=== PATIENT | female | born 1950 | race Caucasian/White ===

== ENCOUNTER 2017-04-21 13:52 | Outpatient (CLI) | payer MEDICARE | END 2017-04-21 13:53 | disposition home or self-care (01) | LOC: BICMAMMO 13:52 | PROVIDERS: ATTEND Internal Medicine Rheumatology | DX: Z13.820 Encounter for screening for osteoporosis (principal); M85.80 Other specified disorders of bone density and structure, unspecified site; Z78.0 Asymptomatic menopausal state | CPT/HCPCS: 77080 ==

== ENCOUNTER 2017-12-22 14:07 | Outpatient (CLI) | payer MEDICARE ==
--- NOTE | 2017-12-22 15:03 | RAD ---
PA AND LATERAL VIEWS CHEST: Date: 12/22/17 HISTORY: Cough. FINDINGS: Comparison made with exam of 12/19/12. The heart size is normal. 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 The lungs are well exp anded without focal areas of consolidation, pneumothoraces, or pleural effusions. There are degenerat cristóbal changes in the spine. IMPRESSION: No radiographic evidence of acute cardiopulmonary process. POS: [facility]
--- NOTE | 2017-12-22 15:18 | RAD ---
ABDOMEN 1 VIEW: HISTORY: Nausea. FINDINGS/IMPRESSION: The bowel gas pattern is unremarkable. No suspicious calcifications are seen. There are degenerativ e changes in the spine. POS: [facility]
== END 2017-12-22 14:08 | disposition home or self-care (01) ==
LOC: RAD-FRANK 14:07
PROVIDERS: ATTEND Nurse Practitioner Family
DX: R11.0 Nausea (principal); R05 Cough; M47.9 Spondylosis, unspecified
CPT/HCPCS: 71046; 74018

== ENCOUNTER 2018-02-08 10:54 | Outpatient (CLI) | payer MEDICARE ==
--- NOTE | 2018-02-08 12:42 | RAD ---
RIGHT SHOULDER TWO VIEWS: History: Pain. Comparison: None. FINDINGS: The exam was incomplete as the transcapular Y view was unable to be obtained due to hardware failure. Within the limits of this exam, no acute fracture or malalignment. 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 Visualized ribs are unremarkable. IMPRESSION: Within the limitations of this exam, no displaced fracture. POS: [facility]
== END 2018-02-08 10:55 | disposition home or self-care (01) ==
LOC: RAD-FRANK 10:54
PROVIDERS: ATTEND Nurse Practitioner Family
DX: M25.511 Pain in right shoulder (principal)

== ENCOUNTER 2019-09-13 14:34 | Outpatient (CLI) | payer MEDICARE ==
--- NOTE | 2019-09-13 14:49 | RAD ---
EXAM: 3 views of the right shoulder HISTORY: Shoulder pain COMPARISON: 02/08/2018 FINDINGS: There is no evidence of acute fracture or dislocation. No degenerative changes are present. No soft tissue swelling is seen. The visualized thorax is unremarkable. IMPRESSION: No evidence of acute osseous abnormality.
== END 2019-09-13 14:35 | disposition home or self-care (01) ==
LOC: RAD-FRANK 14:34
PROVIDERS: ATTEND Nurse Practitioner Family
DX: M25.511 Pain in right shoulder (principal)

== ENCOUNTER 2020-05-15 15:12 | Outpatient (CLI) | payer MEDICARE | END 2020-05-15 15:13 | disposition home or self-care (01) | LOC: BICMRI 15:12 | PROVIDERS: ATTEND Orthopaedic Surgery | DX: M75.101 Unspecified rotator cuff tear or rupture of right shoulder, not specified as traumatic (principal); M25.412 Effusion, left shoulder; M19.012 Primary osteoarthritis, left shoulder ==

== ENCOUNTER 2021-12-23 12:41 | Inpatient (IN) | payer MEDICARE ==
[~2021-12-23 12:41] MED LIST: Iopamidol-370 76% 500 ML 1 ML ONE
[2021-12-23 13:23] LABS: #Basophils 0.1 thou/uL (0.0-0.2); #Eosinphils 0.6 thou/uL (0.0-0.7); #Lymphocytes 1.9 thou/uL (1.20-3.40); #Monocytes 0.6 thou/uL (0.11-0.59); #Neutrophils 7.1 thou/uL (1.40-6.50); %Basophils 0.5 % (0.0-1.0); %Eosinophils 6.1 % (0.0-10.0); %Lymphocytes 18.8 % (21.0-51.0); %Monocytes 5.5 % (0.0-10.0); Hemoglobin 13.4 g/dL (12.0-16.0); Mean Corpuscular HGB CONC 31.1 g/dL (32.0-36.0); Mean Corpuscular Hemoglobin 29.7 pg (27.0-31.0); Mean Corpuscular Volume 95.4 fl (78.0-98.0); Mean Platelet Volume 8.6 fL (7.4-10.4); Platelet Count 195 thou/uL (130-400); RBC Distribution Width 11.8 % (11.5-14.5); White Blood Cell (WBC) Count 10.3 thou/uL (4.8-10.8)
[2021-12-23] MEDS ORDERED: Magnesium 2 GM/50 ML BAG (IN WATER) ONE (13:37)
[2021-12-23 13:47] LABS: ALT (SGPT) 14 U/L (8-55); AST (SGOT) 14 U/L (5-34); Albumin 3.9 g/dL (3.4-4.8); Alkaline Phosphatase 73 U/L (40-110); Anion Gap 16 mmol/L (10-20); BUN (Urea Nitrogen) 8 mg/dL (9.8-20.1); Bilirubin, Total 0.5 mg/dL (0.2-1.2); Calc. Creatinine Clearance 0 mL/min (70-130); Calcium 9.2 mg/dL (7.8-10.44); Carbon Dioxide 27 mmol/L (23-31); Chloride 101 mmol/L (98-107); Estimated GFR 81; Globulin 2.1 g/dL (2.4-3.5); Glucose 221 mg/dL (83-110); Lipase 17 U/L (8-78); Magnesium 2.9 mg/dL (1.6-2.6); Potassium 3.7 mmol/L (3.5-5.1); Sodium 140 mmol/L (136-145)
[2021-12-23] MEDS ORDERED: Ondansetron PF 4 MG/2 ML Vial IVP PRN (15:04)
[2021-12-23] MEDS ORDERED: Acetaminophen 325 MG TAB PO PRN (15:04)
[2021-12-23] MEDS ORDERED: Dextrose 50% Abboject 50 ML SYRINGE SLOW IVP PRN (15:07)
[2021-12-23] MEDS ORDERED: Dextrose 5% in Water 1,000 ML IV PRN (15:07)
[2021-12-23 15:14] LABS: Bilirubin Negative (Negative); Blood, Urine Negative (Negative); Clarity Clear (Clear); Glucose, Urine (Dipstick) 50 mg/dL (Negative); Ketone, Urine Trace mg/dL (Negative); Leukocyte Negative Leu/uL (Negative); Nitrite Negative (Negative); Protein, Urine (Dipstick) Negative (Neg-Trace); Urobilinogen Normal mg/dL (Less than 2)
[2021-12-23 16:17] LABS: Actual Bicarbonate (HCO3a) 28.9 mEq/L (22-28); Analyzer IN Cardio ER; Base Excess (BEa) 3.1 mEq/L (-2.0 to +3.0); CO2 Tension 48.8 mmHg (35.0-45.0); Calcium, Ionized (arterial) 1.13 mmol/L (1.12-1.30); Carboxyhemoglobin (COHb) 1.2 gm% (0.0-3.0); Hemoglobin (Hb) 14.2 g/dL (12.0-16.0); pH, Arterial 7.39 (7.35-7.45)
[2021-12-23 16:22] LABS: O2 Tension (PaO2), arterial 56.3 mmHg (> 70.0); Puncture Site LRA
[2021-12-23 16:52] LABS: Troponin I Less than 0.010 ng/mL (< 0.028)
[2021-12-23] MEDS ORDERED: cefTRIAXone\\ROCEPHIN 1 GM in Sodium Chloride 0.9% 100 ML IVPB SCH (17:00)
[2021-12-23] MEDS ORDERED: Azithromycin 500 MG in Sodium Chloride 0.9% 250 ML 250 ML IVPB SCH (18:00)
[2021-12-23] MEDS: methylPREDNISolone Sod Succ 40 MG VIAL IVP SCH (21:20)
[2021-12-23] MEDS: HumaLOG 300 UNITS/3 ML VIAL SC PRN ×2 (21:21→21:22)
[2021-12-23] MEDS: cefTRIAXone\\ROCEPHIN 1 GM in Sodium Chloride 0.9% 100 ML IVPB SCH (21:21)
[2021-12-23 21:23] LABS: Troponin I Less than 0.010 ng/mL (< 0.028)
[2021-12-23] MEDS ORDERED: traMADol HCl 50 MG TAB PO SCH (21:30)
[2021-12-23] MEDS: Azithromycin 500 MG in Sodium Chloride 0.9% 250 ML 250 ML IVPB SCH (22:24)
[2021-12-24 01:43] LABS: SARS-CoV-2 NAA Rapid Test Not Detected (NotDetected)
[2021-12-24 04:42] LABS: #Lymphocytes 0.5 thou/uL (1.20-3.40); #Monocytes 0.2 thou/uL (0.11-0.59); #Neutrophils 7.9 thou/uL (1.40-6.50); %Basophils 0.1 % (0.0-1.0); %Eosinophils 0.1 % (0.0-10.0); %Lymphocytes 5.4 % (21.0-51.0); %Monocytes 2.6 % (0.0-10.0); %Neutrophils 91.8 % (42.0-75.0); Hemoglobin 11.8 g/dL (12.0-16.0); Mean Corpuscular HGB CONC 32.5 g/dL (32.0-36.0); Mean Corpuscular Hemoglobin 30.6 pg (27.0-31.0); Mean Corpuscular Volume 94.1 fl (78.0-98.0); Mean Platelet Volume 8.9 fL (7.4-10.4); Platelet Count 149 thou/uL (130-400); RBC Distribution Width 11.7 % (11.5-14.5); Red Blood Cell (RBC) Count 3.85 mill/uL (4.20-5.40); White Blood Cell (WBC) Count 8.6 thou/uL (4.8-10.8)
[2021-12-24 05:02] LABS: Anion Gap 12 mmol/L (10-20); BUN (Urea Nitrogen) 11 mg/dL (9.8-20.1); Calc. Creatinine Clearance 93 mL/min (70-130); Carbon Dioxide 27 mmol/L (23-31); Chloride 102 mmol/L (98-107); Estimated GFR 84; Glucose 276 mg/dL (83-110); Potassium 4.4 mmol/L (3.5-5.1); Sodium 137 mmol/L (136-145)
[2021-12-24] MEDS: HumaLOG 300 UNITS/3 ML VIAL SC PRN ×4 (06:21→20:42)
[2021-12-24] MEDS: Enoxaparin Sodium 40 MG/0.4 ML SYRINGE SC SCH (09:00)
[2021-12-24] MEDS: methylPREDNISolone Sod Succ 40 MG VIAL IVP SCH ×2 (09:00→20:42)
[2021-12-24] MEDS: guaiFENesin/Codeine 200 mg/20 mg 10 ml Cup PO PRN ×2 (11:48→20:14)
[2021-12-24 12:14] VITALS: BMI 28.2
[2021-12-24] MEDS: cefTRIAXone\\ROCEPHIN 1 GM in Sodium Chloride 0.9% 100 ML IVPB SCH (20:41)
[2021-12-24] MEDS: Insulin Glargine 30 UNITS/0.3 ML VIAL SC SCH (20:42)
[2021-12-24] MEDS: Azithromycin 500 MG in Sodium Chloride 0.9% 250 ML 250 ML IVPB SCH (21:43)
[2021-12-25 04:24] LABS: #Lymphocytes 0.7 thou/uL (1.20-3.40); #Monocytes 0.4 thou/uL (0.11-0.59); #Neutrophils 10.8 thou/uL (1.40-6.50); %Basophils 0.2 % (0.0-1.0); %Eosinophils 0.2 % (0.0-10.0); %Lymphocytes 5.5 % (21.0-51.0); %Monocytes 3.4 % (0.0-10.0); %Neutrophils 90.8 % (42.0-75.0); Hemoglobin 11.7 g/dL (12.0-16.0); Mean Corpuscular HGB CONC 33.5 g/dL (32.0-36.0); Mean Corpuscular Hemoglobin 31.8 pg (27.0-31.0); Mean Platelet Volume 9.1 fL (7.4-10.4); Platelet Count 150 thou/uL (130-400); RBC Distribution Width 11.8 % (11.5-14.5); Red Blood Cell (RBC) Count 3.68 mill/uL (4.20-5.40); White Blood Cell (WBC) Count 11.9 thou/uL (4.8-10.8)
[2021-12-25 04:44] LABS: Anion Gap 10 mmol/L (10-20); BUN (Urea Nitrogen) 16 mg/dL (9.8-20.1); Calc. Creatinine Clearance 88 mL/min (70-130); Carbon Dioxide 28 mmol/L (23-31); Chloride 104 mmol/L (98-107); Estimated GFR 79; Glucose 287 mg/dL (83-110); Potassium 4.9 mmol/L (3.5-5.1); Sodium 137 mmol/L (136-145)
[2021-12-25] MEDS: HumaLOG 300 UNITS/3 ML VIAL SC PRN ×2 (06:12→16:33)
[2021-12-25] MEDS ORDERED: FLU VACC QS2022-23(65YR UP)/PF 240 MCG/0.7 ML SYRINGE IM ONE (09:00)
[2021-12-25] MEDS: Lisinopril 10 MG TAB PO SCH (10:10)
[2021-12-25] MEDS: Enoxaparin Sodium 40 MG/0.4 ML SYRINGE SC SCH (10:11)
[2021-12-25] MEDS: methylPREDNISolone Sod Succ 40 MG VIAL IVP SCH ×2 (10:11→21:17)
[2021-12-25] MEDS: cefTRIAXone\\ROCEPHIN 1 GM in Sodium Chloride 0.9% 100 ML IVPB SCH (21:17)
[2021-12-25] MEDS: Insulin Glargine 30 UNITS/0.3 ML VIAL SC SCH (21:17)
[2021-12-25] MEDS: guaiFENesin/Codeine 200 mg/20 mg 10 ml Cup PO PRN (21:17)
[2021-12-26] MEDS: HumaLOG 300 UNITS/3 ML VIAL SC PRN (05:56)
[2021-12-26] MEDS: Lisinopril 10 MG TAB PO SCH (10:03)
[2021-12-26] MEDS: methylPREDNISolone Sod Succ 40 MG VIAL IVP SCH (10:04)
[2021-12-26] MEDS: Enoxaparin Sodium 40 MG/0.4 ML SYRINGE SC SCH (10:04)
[2021-12-26 12:21] VITALS: TEMP 98.2
[2021-12-26 12:24] VITALS: BP 108/71
== END 2021-12-26 15:03 | disposition home or self-care (01) | DRG 189 ==
LOC: ERS 12:41 → 2NO 15:29
PROVIDERS: ADMIT Internal Medicine; ATTEND Internal Medicine
DX: J96.01 Acute respiratory failure with hypoxia (principal); J44.1 Chronic obstructive pulmonary disease with (acute) exacerbation; I47.1 Supraventricular tachycardia; E11.9 Type 2 diabetes mellitus without complications; I10 Essential (primary) hypertension; F17.210 Nicotine dependence, cigarettes, uncomplicated; E66.9 Obesity, unspecified; F32.A Depression, unspecified; Z20.822 Contact with and (suspected) exposure to COVID-19; Z90.710 Acquired absence of both cervix and uterus; Z68.28 Body mass index [BMI] 28.0-28.9, adult
CPT/HCPCS: 36415; 36416; 36600; 71045; 71275; 80048; 80053; 81003; 82805; 83690; 83735; 83880; 84484; 85025; 85379; 90471; 90662; 90732; 93005; 94640; G0008; G0009; J0456; J0696; J1650; J1815; J2405; J2920; J3475; J3490; J7050; J7620; Q9967

== ENCOUNTER 2022-03-27 22:38 | Inpatient (IN) | payer MEDICARE ==
[2022-03-27] MEDS ORDERED: Magnesium 2 GM/50 ML BAG (IN WATER) ONE (22:56)
[2022-03-27] MEDS ORDERED: Dexamethasone 10 MG/ML VIAL ONE (22:57)
[2022-03-27 23:22] LABS: #Basophils 0.1 thou/uL (0.0-0.2); #Eosinphils 0.6 thou/uL (0.0-0.7); #Monocytes 0.6 thou/uL (0.11-0.59); #Neutrophils 7.5 thou/uL (1.40-6.50); %Basophils 0.5 % (0.0-1.0); %Eosinophils 4.9 % (0.0-10.0); %Lymphocytes 25.4 % (21.0-51.0); %Monocytes 4.8 % (0.0-10.0); %Neutrophils 64.5 % (42.0-75.0); Mean Corpuscular HGB CONC 33.2 g/dL (32.0-36.0); Mean Corpuscular Hemoglobin 29.8 pg (27.0-31.0); Mean Corpuscular Volume 89.6 fl (78.0-98.0); Mean Platelet Volume 9.4 fL (7.4-10.4); Platelet Count 183 10x3/uL (130-400); RBC Distribution Width 13.4 % (11.5-14.5); Red Blood Cell (RBC) Count 5.02 mill/uL (4.20-5.40); White Blood Cell (WBC) Count 11.7 10x3/uL (4.8-10.8)
[2022-03-27 23:45] LABS: ALT (SGPT) 14 U/L (8-55); AST (SGOT) 11 U/L (5-34); Albumin 3.8 g/dL (3.4-4.8); Alkaline Phosphatase 90 U/L (40-110); Anion Gap 16 mmol/L (10-20); BUN (Urea Nitrogen) 14 mg/dL (9.8-20.1); Bilirubin, Total 0.3 mg/dL (0.2-1.2); Calc. Creatinine Clearance 0 mL/min (70-130); Calcium 9.3 mg/dL (7.8-10.44); Carbon Dioxide 31 mmol/L (23-31); Chloride 97 mmol/L (98-107); Estimated GFR 42; Globulin 2.5 g/dL (2.4-3.5); Glucose 357 mg/dL (83-110); Lipase 35 U/L (8-78); Potassium 3.5 mmol/L (3.5-5.1); Protein, Total 6.3 g/dL (5.8-8.1); Sodium 140 mmol/L (136-145)
[2022-03-27] MEDS ORDERED: Ipratropium/Albuterol 3 ML NEB ONE (23:56)
[2022-03-28] MEDS ORDERED: Morphine 4 MG/ML VIAL ONE (00:08)
[2022-03-28] MEDS ORDERED: Ipratropium/Albuterol 3 ML NEB ONE (00:08)
[2022-03-28 02:18] LABS: Lactic Acid 3.4 mmol/L (0.5-2.2)
[2022-03-28 02:43] LABS: SARS-CoV-2 NAA Rapid Test Not Detected (NotDetected)
[2022-03-28] MEDS ORDERED: Senokot S 8.6-50 MG TAB PO PRN (03:29)
[2022-03-28] MEDS ORDERED: Acetaminophen 325 MG TAB PO PRN (03:29)
[2022-03-28] MEDS ORDERED: Bisacodyl 5 MG TAB PO PRN (03:29)
[2022-03-28] MEDS ORDERED: Ondansetron ODT 4 MG TAB PO PRN (03:29)
[2022-03-28] MEDS ORDERED: Sodium Chloride 0.9% 1,000 ML IV SCH (03:45)
[2022-03-28 05:35] VITALS: BMI 26.7
[2022-03-28] MEDS: Nicotine 14 MG PATCH TD SCH (06:14)
[2022-03-28] MEDS: Ipratropium/Albuterol 3 ML NEB NEB SCH ×3 (07:47→20:20)
[2022-03-28] MEDS ORDERED: Famotidine 20 MG TAB PO SCH (09:00)
[2022-03-28] MEDS: Venlafaxine 75 MG TAB PO SCH (09:17)
[2022-03-28] MEDS: Azithromycin 250 MG TAB PO SCH (09:17)
[2022-03-28] MEDS: methylPREDNISolone Sod Succ 40 MG VIAL IVP SCH ×2 (09:18→19:25)
[2022-03-28] MEDS: Heparin 5,000 UNITS/ML VIAL SC SCH ×3 (09:18→19:25)
[2022-03-28] MEDS: cefTRIAXone\\ROCEPHIN 1 GM in Sodium Chloride 0.9% 100 ML IVPB SCH (09:18)
[2022-03-28] MEDS ORDERED: Iopamidol-370 76% 500 ML 1 ML ONE (11:18)
[2022-03-28] MEDS ORDERED: Dextrose 5% in Water 1,000 ML IV PRN (13:38)
[2022-03-28] MEDS ORDERED: Dextrose 50% Abboject 50 ML SYRINGE SLOW IVP PRN (13:38)
[2022-03-28] MEDS: HumaLOG 300 UNITS/3 ML VIAL SC PRN ×3 (14:09→20:29)
[2022-03-28] MEDS: Amlodipine 10 MG TAB PO SCH (17:00)
[2022-03-28] MEDS: guaiFENesin/DM ER PO SCH (19:25)
[2022-03-28] MEDS: Mometasone 200 MCG/Formoterol 5 MCG 120 PUFF INHALER INH SCH (20:22)
[2022-03-29] MEDS: Ipratropium/Albuterol 3 ML NEB NEB SCH ×4 (00:59→19:05)
[2022-03-29] MEDS: Nicotine 14 MG PATCH TD SCH (05:30)
[2022-03-29] MEDS: HumaLOG 300 UNITS/3 ML VIAL SC PRN ×4 (05:30→20:55)
[2022-03-29 07:20] LABS: Anion Gap 14 mmol/L (10-20); BUN (Urea Nitrogen) 14 mg/dL (9.8-20.1); Calc. Creatinine Clearance 79 mL/min (70-130); Calcium 9.5 mg/dL (7.8-10.44); Carbon Dioxide 25 mmol/L (23-31); Chloride 104 mmol/L (98-107); Estimated GFR 73; Glucose 343 mg/dL (83-110); Potassium 4.6 mmol/L (3.5-5.1); Sodium 138 mmol/L (136-145)
[2022-03-29] MEDS: Mometasone 200 MCG/Formoterol 5 MCG 120 PUFF INHALER INH SCH ×2 (07:40→19:06)
[2022-03-29 08:32] LABS: Band 5 % (5-11); Hemoglobin 11.8 g/dL (12.0-16.0); Lymphocytes 6 % (21-51); MDiff Complete? YES; Mean Corpuscular HGB CONC 31.8 g/dL (32.0-36.0); Mean Corpuscular Hemoglobin 28.9 pg (27.0-31.0); Mean Corpuscular Volume 90.9 fl (78.0-98.0); Mean Platelet Volume 9.6 fL (7.4-10.4); Monocytes 4 % (0-10); Neutrophil 83 % (42-75); Platelet Count 150 10x3/uL (130-400); Platelet Morphology Comment Appears Adequate; Polychromasia SLIGHT = 2-3 cells (100X) (0-2/hpf); RBC Distribution Width 13.3 % (11.5-14.5); Reactive Lymphocytes 2 % (0-10); Red Blood Cell (RBC) Count 4.07 mill/uL (4.20-5.40); White Blood Cell (WBC) Count 15.9 10x3/uL (4.8-10.8)
[2022-03-29] MEDS: Heparin 5,000 UNITS/ML VIAL SC SCH ×3 (09:01→20:50)
[2022-03-29] MEDS: Venlafaxine 75 MG TAB PO SCH (09:02)
[2022-03-29] MEDS: glyBURIDE 2.5 MG TAB PO SCH (09:02)
[2022-03-29] MEDS: Amlodipine 10 MG TAB PO SCH (09:02)
[2022-03-29] MEDS: methylPREDNISolone Sod Succ 40 MG VIAL IVP SCH ×2 (09:02→20:49)
[2022-03-29] MEDS: guaiFENesin/DM ER PO SCH ×2 (09:02→20:50)
[2022-03-29] MEDS: Azithromycin 250 MG TAB PO SCH (09:02)
[2022-03-29] MEDS: Famotidine 20 MG TAB PO SCH ×2 (09:03→20:50)
[2022-03-29] MEDS: cefTRIAXone\\ROCEPHIN 1 GM in Sodium Chloride 0.9% 100 ML IVPB SCH (09:05)
[2022-03-29] MEDS ORDERED: Nystatin Powder 15 GM BOT TOP PRN (19:01)
[2022-03-29] MEDS ORDERED: Miconazole 2% Vaginal Cream 45 GM TUBE VAG SCH (21:00)
[2022-03-30] MEDS: Ipratropium/Albuterol 3 ML NEB NEB SCH ×3 (00:17→13:15)
[2022-03-30] MEDS: Nicotine 14 MG PATCH TD SCH (05:21)
[2022-03-30] MEDS: HumaLOG 300 UNITS/3 ML VIAL SC PRN (05:21)
[2022-03-30] MEDS: Mometasone 200 MCG/Formoterol 5 MCG 120 PUFF INHALER INH SCH (06:47)
[2022-03-30] MEDS: Venlafaxine 75 MG TAB PO SCH (08:54)
[2022-03-30] MEDS: Amlodipine 10 MG TAB PO SCH (08:54)
[2022-03-30] MEDS: Heparin 5,000 UNITS/ML VIAL SC SCH (08:54)
[2022-03-30] MEDS: methylPREDNISolone Sod Succ 40 MG VIAL IVP SCH (08:54)
[2022-03-30] MEDS: guaiFENesin/DM ER PO SCH (08:54)
[2022-03-30] MEDS: Famotidine 20 MG TAB PO SCH (08:54)
[2022-03-30] MEDS: Azithromycin 250 MG TAB PO SCH (08:54)
[2022-03-30] MEDS: glyBURIDE 2.5 MG TAB PO SCH (08:55)
[2022-03-30] MEDS: cefTRIAXone\\ROCEPHIN 1 GM in Sodium Chloride 0.9% 100 ML IVPB SCH (08:55)
[2022-03-30 14:06] VITALS: BP 137/73; TEMP 97.6
== END 2022-03-30 14:31 | disposition home or self-care (01) | DRG 189 ==
LOC: ERS 22:38 → ERHOLD 03-28 02:22 → T4-B 03-28 05:06
PROVIDERS: ADMIT Student in an Organized Health Care Education/Training Program; ATTEND Family Medicine
DX: J96.21 Acute and chronic respiratory failure with hypoxia (principal); J44.1 Chronic obstructive pulmonary disease with (acute) exacerbation; E87.20 Acidosis, unspecified; N17.9 Acute kidney failure, unspecified; I10 Essential (primary) hypertension; E11.9 Type 2 diabetes mellitus without complications; Z20.822 Contact with and (suspected) exposure to COVID-19; Z87.891 Personal history of nicotine dependence; Z79.899 Other long term (current) drug therapy; Z90.710 Acquired absence of both cervix and uterus
CPT/HCPCS: 36415; 36416; 71045; 71275; 80048; 80053; 83605; 83690; 83880; 84484; 85025; 85379; 93005; 94640; 96361; 96365; 96366; 96367; 96375; J0696; J1100; J1644; J1815; J1956; J2270; J2920; J3475; J3490; J7050; J7620; Q9967

== ENCOUNTER 2022-05-13 23:06 | Observation (INO) | payer MEDICARE ==
[2022-05-14 00:17] LABS: #Basophils 0.1 thou/uL (0.0-0.2); #Eosinphils 0.6 thou/uL (0.0-0.7); #Lymphocytes 2.6 thou/uL (1.20-3.40); #Neutrophils 6.7 thou/uL (1.40-6.50); %Basophils 0.6 % (0.0-1.0); %Eosinophils 5.3 % (0.0-10.0); %Lymphocytes 24.1 % (21.0-51.0); %Monocytes 9.1 % (0.0-10.0); %Neutrophils 60.8 % (42.0-75.0); Hemoglobin 14.2 g/dL (12.0-16.0); Mean Corpuscular HGB CONC 34.4 g/dL (32.0-36.0); Mean Corpuscular Hemoglobin 31.1 pg (27.0-31.0); Mean Corpuscular Volume 90.6 fl (78.0-98.0); Mean Platelet Volume 9.7 fL (7.4-10.4); Platelet Count 168 10x3/uL (130-400); RBC Distribution Width 13.9 % (11.5-14.5); Red Blood Cell (RBC) Count 4.55 mill/uL (4.20-5.40)
[2022-05-14 00:38] LABS: ALT (SGPT) 7 U/L (8-55); AST (SGOT) 7 U/L (5-34); Albumin 3.7 g/dL (3.4-4.8); Alkaline Phosphatase 85 U/L (40-110); Anion Gap 14 mmol/L (10-20); BUN (Urea Nitrogen) 15 mg/dL (9.8-20.1); Bilirubin, Total 0.3 mg/dL (0.2-1.2); Calc. Creatinine Clearance 0 mL/min (70-130); Carbon Dioxide 28 mmol/L (23-31); Chloride 103 mmol/L (98-107); Estimated GFR 80; Globulin 1.9 g/dL (2.4-3.5); Glucose 234 mg/dL (83-110); Potassium 3.8 mmol/L (3.5-5.1); Protein, Total 5.6 g/dL (5.8-8.1); Sodium 141 mmol/L (136-145)
[2022-05-14] MEDS ORDERED: methylPREDNISolone Sod Succ/PF 125 MG/2 ML VIAL ONE (00:41)
[2022-05-14] MEDS ORDERED: cefTRIAXone (ROCEPHIN) 1 GM VIAL ONE (00:41)
[2022-05-14] MEDS ORDERED: Ipratropium/Albuterol 3 ML NEB ONE (00:41)
[2022-05-14] MEDS ORDERED: Magnesium 2 GM/50 ML BAG (IN WATER) ONE (00:41)
[2022-05-14] MEDS ORDERED: Dextrose 5% in Water 1,000 ML IV PRN (03:29)
[2022-05-14] MEDS ORDERED: Acetaminophen 325 MG TAB PO PRN (03:29)
[2022-05-14] MEDS ORDERED: HumaLOG 300 UNITS/3 ML VIAL SC PRN (03:29)
[2022-05-14] MEDS ORDERED: Ondansetron ODT 4 MG TAB PO PRN (03:29)
[2022-05-14] MEDS ORDERED: Dextrose 50% Abboject 50 ML SYRINGE SLOW IVP PRN (03:29)
[2022-05-14] MEDS ORDERED: Nicotine 14 MG PATCH TD PRN (03:29)
[2022-05-14] MEDS ORDERED: Senokot S 8.6-50 MG TAB PO PRN (03:29)
[2022-05-14] MEDS ORDERED: Ondansetron PF 4 MG/2 ML Vial IVP PRN (03:29)
[2022-05-14] MEDS: Azithromycin 500 MG in Sodium Chloride 0.9% 250 ML 250 ML IVPB SCH (05:57)
[2022-05-14] MEDS: Ipratropium/Albuterol 3 ML NEB NEB SCH ×5 (06:19→21:55)
[2022-05-14] MEDS: methylPREDNISolone Sod Succ 40 MG VIAL IVP SCH ×2 (08:14→17:53)
[2022-05-14] MEDS: Venlafaxine 75 MG TAB PO SCH (08:14)
[2022-05-14 08:44] LABS: Anion Gap 16 mmol/L (10-20); BUN (Urea Nitrogen) 13 mg/dL (9.8-20.1); Calc. Creatinine Clearance 0 mL/min (70-130); Calcium 8.7 mg/dL (7.8-10.44); Carbon Dioxide 23 mmol/L (23-31); Chloride 102 mmol/L (98-107); Estimated GFR 79; Glucose 382 mg/dL (83-110); Magnesium 2.1 mg/dL (1.6-2.6); Potassium 4.1 mmol/L (3.5-5.1); Sodium 137 mmol/L (136-145)
[2022-05-14] MEDS ORDERED: methylPREDNISolone Sod Succ 40 MG VIAL IVP SCH (09:00)
[2022-05-14 09:02] LABS: #Basophils 0.1 thou/uL (0.0-0.2); #Lymphocytes 0.2 thou/uL (1.20-3.40); #Monocytes 0.1 thou/uL (0.11-0.59); #Neutrophils 8.3 thou/uL (1.40-6.50); %Basophils 0.8 % (0.0-1.0); %Eosinophils 0.2 % (0.0-10.0); %Lymphocytes 2.6 % (21.0-51.0); %Neutrophils 95.4 % (42.0-75.0); Hemoglobin 12.8 g/dL (12.0-16.0); Mean Corpuscular HGB CONC 31.9 g/dL (32.0-36.0); Mean Corpuscular Hemoglobin 29.2 pg (27.0-31.0); Mean Corpuscular Volume 91.6 fl (78.0-98.0); Mean Platelet Volume 9.7 fL (7.4-10.4); Platelet Count 162 10x3/uL (130-400); RBC Distribution Width 13.8 % (11.5-14.5); Red Blood Cell (RBC) Count 4.37 mill/uL (4.20-5.40); White Blood Cell (WBC) Count 8.7 10x3/uL (4.8-10.8)
[2022-05-14] MEDS: HumaLOG 300 UNITS/3 ML VIAL SC PRN ×3 (12:21→21:07)
[2022-05-14] MEDS: metFORMIN 500 MG TAB PO SCH (17:53)
[2022-05-14] MEDS: Mometasone 200 MCG/Formoterol 5 MCG 120 PUFF INHALER INH SCH (18:29)
[2022-05-15] MEDS: cefTRIAXone\\ROCEPHIN 1 GM in Sodium Chloride 0.9% 100 ML IVPB SCH (01:03)
[2022-05-15] MEDS: methylPREDNISolone Sod Succ 40 MG VIAL IVP SCH ×3 (01:04→16:37)
[2022-05-15] MEDS: Ipratropium/Albuterol 3 ML NEB NEB SCH ×6 (01:30→23:06)
[2022-05-15] MEDS: HumaLOG 300 UNITS/3 ML VIAL SC PRN ×4 (05:01→20:38)
[2022-05-15] MEDS: Azithromycin 500 MG in Sodium Chloride 0.9% 250 ML 250 ML IVPB SCH (05:03)
[2022-05-15] MEDS: Mometasone 200 MCG/Formoterol 5 MCG 120 PUFF INHALER INH SCH ×2 (07:35→18:30)
[2022-05-15 08:33] LABS: Anion Gap 13 mmol/L (10-20); BUN (Urea Nitrogen) 13 mg/dL (9.8-20.1); Calc. Creatinine Clearance 0 mL/min (70-130); Calcium 9.2 mg/dL (7.8-10.44); Carbon Dioxide 24 mmol/L (23-31); Chloride 105 mmol/L (98-107); Estimated GFR 85; Glucose 285 mg/dL (83-110); Magnesium 2.1 mg/dL (1.6-2.6); Potassium 4.2 mmol/L (3.5-5.1); Sodium 138 mmol/L (136-145)
[2022-05-15] MEDS: Lisinopril 20 MG TAB PO SCH (08:50)
[2022-05-15] MEDS: Venlafaxine 75 MG TAB PO SCH (08:50)
[2022-05-15] MEDS: metFORMIN 500 MG TAB PO SCH ×2 (08:50→16:37)
[2022-05-15 10:41] LABS: #Lymphocytes 0.5 thou/uL (1.20-3.40); #Monocytes 0.6 thou/uL (0.11-0.59); #Neutrophils 16.4 thou/uL (1.40-6.50); %Eosinophils 0.1 % (0.0-10.0); %Monocytes 3.6 % (0.0-10.0); %Neutrophils 93.3 % (42.0-75.0); Hemoglobin 12.2 g/dL (12.0-16.0); Mean Corpuscular HGB CONC 33.3 g/dL (32.0-36.0); Mean Corpuscular Hemoglobin 30.2 pg (27.0-31.0); Mean Corpuscular Volume 90.7 fl (78.0-98.0); Mean Platelet Volume 9.8 fL (7.4-10.4); Platelet Count 150 10x3/uL (130-400); RBC Distribution Width 13.6 % (11.5-14.5); Red Blood Cell (RBC) Count 4.05 mill/uL (4.20-5.40); White Blood Cell (WBC) Count 17.5 10x3/uL (4.8-10.8)
[2022-05-15 10:54] LABS: Hemoglobin A1c 9.1 % (4.0-6.0)
[2022-05-15] MEDS ORDERED: metFORMIN 500 MG TAB PO SCH (17:00)
[2022-05-16] MEDS: cefTRIAXone\\ROCEPHIN 1 GM in Sodium Chloride 0.9% 100 ML IVPB SCH (00:40)
[2022-05-16] MEDS: Ipratropium/Albuterol 3 ML NEB NEB SCH ×2 (03:30→07:23)
[2022-05-16] MEDS: HumaLOG 300 UNITS/3 ML VIAL SC PRN (04:51)
[2022-05-16] MEDS: Azithromycin 500 MG in Sodium Chloride 0.9% 250 ML 250 ML IVPB SCH (05:00)
[2022-05-16] MEDS: Mometasone 200 MCG/Formoterol 5 MCG 120 PUFF INHALER INH SCH (07:24)
[2022-05-16 07:52] LABS: Anion Gap 11 mmol/L (10-20); BUN (Urea Nitrogen) 19 mg/dL (9.8-20.1); Calc. Creatinine Clearance 0 mL/min (70-130); Calcium 9.1 mg/dL (7.8-10.44); Carbon Dioxide 27 mmol/L (23-31); Chloride 102 mmol/L (98-107); Estimated GFR 74; Glucose 366 mg/dL (83-110); Potassium 4.4 mmol/L (3.5-5.1); Sodium 136 mmol/L (136-145)
[2022-05-16] MEDS ORDERED: predniSONE 20 MG TAB PO SCH (08:00)
[2022-05-16 08:10] LABS: Band 8 % (5-11); Hemoglobin 13.1 g/dL (12.0-16.0); MDiff Complete? YES; Mean Corpuscular HGB CONC 32.9 g/dL (32.0-36.0); Mean Platelet Volume 10.2 fL (7.4-10.4); Monocytes 2 % (0-10); Neutrophil 88 % (42-75); Platelet Count 152 10x3/uL (130-400); Platelet Morphology Comment Appears Adequate; RBC Morphology Normal; Reactive Lymphocytes 2 % (0-10); Red Blood Cell (RBC) Count 4.37 mill/uL (4.20-5.40); White Blood Cell (WBC) Count 14.2 10x3/uL (4.8-10.8)
[2022-05-16] MEDS: metFORMIN 500 MG TAB PO SCH (08:59)
[2022-05-16] MEDS: Venlafaxine 75 MG TAB PO SCH (08:59)
[2022-05-16] MEDS: Lisinopril 20 MG TAB PO SCH (08:59)
[2022-05-16 12:12] VITALS: BP 149/75; TEMP 98.4
== END 2022-05-16 11:30 | disposition home health service (06) ==
LOC: ERS 23:06 → T4-A 05-14 01:58
PROVIDERS: ADMIT Family Medicine; ATTEND Family Medicine
DX: J96.21 Acute and chronic respiratory failure with hypoxia (principal); J44.1 Chronic obstructive pulmonary disease with (acute) exacerbation; E11.9 Type 2 diabetes mellitus without complications; I10 Essential (primary) hypertension; F17.210 Nicotine dependence, cigarettes, uncomplicated; D72.829 Elevated white blood cell count, unspecified; Z79.84 Long term (current) use of oral hypoglycemic drugs; Z79.899 Other long term (current) drug therapy; Z99.81 Dependence on supplemental oxygen
CPT/HCPCS: 71045; 80048 ×3; 80053; 82962 ×3; 83036; 83735 ×2; 83880; 84484; 85025 ×4; 93005; 94640 ×7; 94664; 96365; 96368; 96372 ×2; 96375 ×2; 96376 ×3; 97116; 99285; G0378 ×4; J0456 ×3; 36415; 36416; J0696; J1650; J1815; J2920; J2930; J3475; J3490; J7050; J7512; J7611; J7620

== ENCOUNTER 2022-06-14 18:47 | Emergency (ER) | payer MEDICARE ==
[2022-06-14] MEDS ORDERED: methylPREDNISolone Sod Succ/PF 125 MG/2 ML VIAL ONE (19:23)
[2022-06-14 19:48] LABS: #Basophils 0.1 thou/uL (0.0-0.2); #Eosinphils 0.5 thou/uL (0.0-0.7); #Monocytes 0.7 thou/uL (0.11-0.59); #Neutrophils 4.9 thou/uL (1.40-6.50); %Eosinophils 6.1 % (0.0-10.0); %Lymphocytes 24.4 % (21.0-51.0); %Monocytes 8.6 % (0.0-10.0); %Neutrophils 59.9 % (42.0-75.0); Hemoglobin 14.2 g/dL (12.0-16.0); MDiff Complete? YES; Mean Corpuscular HGB CONC 34.7 g/dL (32.0-36.0); Mean Corpuscular Hemoglobin 30.8 pg (27.0-31.0); Mean Corpuscular Volume 88.5 fl (78.0-98.0); Mean Platelet Volume 9.9 fL (7.4-10.4); Platelet Count 123 10x3/uL (130-400); Platelet Morphology Comment Appears Decreased; Polychromasia SLIGHT = 2-3 cells (100X) (0-2/hpf); RBC Distribution Width 13.4 % (11.5-14.5); Red Blood Cell (RBC) Count 4.63 mill/uL (4.20-5.40); White Blood Cell (WBC) Count 8.1 10x3/uL (4.8-10.8)
[2022-06-14 21:21] LABS: ALT (SGPT) 7 U/L (8-55); AST (SGOT) 9 U/L (5-34); Albumin 3.8 g/dL (3.4-4.8); Alkaline Phosphatase 73 U/L (40-110); Anion Gap 17 mmol/L (10-20); BUN (Urea Nitrogen) 17 mg/dL (9.8-20.1); Bilirubin, Total 0.2 mg/dL (0.2-1.2); Calc. Creatinine Clearance 0 mL/min (70-130); Calcium 9.8 mg/dL (7.8-10.44); Carbon Dioxide 25 mmol/L (23-31); Chloride 103 mmol/L (98-107); Estimated GFR 73; Globulin 2.3 g/dL (2.4-3.5); Glucose 248 mg/dL (83-110); Potassium 3.7 mmol/L (3.5-5.1); Protein, Total 6.1 g/dL (5.8-8.1); Sodium 141 mmol/L (136-145)
== END 2022-06-14 22:21 | disposition home or self-care (01) ==
LOC: ERS 18:47
DX: J44.1 Chronic obstructive pulmonary disease with (acute) exacerbation (principal); I10 Essential (primary) hypertension; E11.9 Type 2 diabetes mellitus without complications; F17.210 Nicotine dependence, cigarettes, uncomplicated; Z79.899 Other long term (current) drug therapy; Z79.84 Long term (current) use of oral hypoglycemic drugs
CPT/HCPCS: 71045; 80053; 83880; 85025; 93005; 94760; 96374; J2930

== ENCOUNTER 2023-04-01 16:55 | Emergency (ER) | payer MEDICARE ==
[2023-04-01 17:56] LABS: ALT (SGPT) Less than 7 U/L (8-55); AST (SGOT) 9 U/L (5-34); Albumin 4.1 g/dL (3.4-4.8); Alkaline Phosphatase 93 U/L (40-110); Anion Gap 10 mmol/L (10-20); BUN (Urea Nitrogen) 9 mg/dL (9.8-20.1); Bilirubin, Total 0.5 mg/dL (0.2-1.2); Calc. Creatinine Clearance 0 mL/min (70-130); Calcium 9.4 mg/dL (7.8-10.44); Carbon Dioxide 29 mmol/L (23-31); Chloride 103 mmol/L (98-107); Estimated GFR 73; Globulin 1.9 g/dL (2.4-3.5); Glucose 271 mg/dL (83-110); Magnesium 1.9 mg/dL (1.6-2.6); Potassium 4.2 mmol/L (3.5-5.1); Sodium 138 mmol/L (136-145)
[2023-04-01 17:59] LABS: Troponin I Less than 0.010 ng/mL (< 0.028)
[2023-04-01 18:06] LABS: #Eosinphils 0.1 thou/uL (0.0-0.7); #Monocytes 0.6 thou/uL (0.11-0.59); #Neutrophils 9.7 thou/uL (1.40-6.50); %Basophils 0.4 % (0.0-1.0); %Eosinophils 1.1 % (0.0-10.0); %Monocytes 5.7 % (0.0-10.0); %Neutrophils 85.4 % (42.0-75.0); Hematocrit 42.4 % (36.0-47.0); Hemoglobin 14.1 g/dL (12.0-16.0); Mean Corpuscular HGB CONC 33.3 g/dL (32.0-36.0); Mean Corpuscular Hemoglobin 29.6 pg (27.0-31.0); Mean Corpuscular Volume 89.1 fl (78.0-98.0); Mean Platelet Volume 10.9 fL (7.4-10.4); Platelet Count 209 10x3/uL (130-400); RBC Distribution Width 12.9 % (11.5-14.5); Red Blood Cell (RBC) Count 4.76 mill/uL (4.20-5.40); White Blood Cell (WBC) Count 11.3 10x3/uL (4.8-10.8)
[2023-04-01 19:13] LABS: PTT 33.4 sec (22.9-36.1); Prothrombin Time 13.3 sec (12.0-14.7)
== END 2023-04-01 19:53 | disposition home or self-care (01) ==
LOC: ERS 16:55
DX: S09.90XA Unspecified injury of head, initial encounter (principal); S80.211A Abrasion, right knee, initial encounter; M25.511 Pain in right shoulder; E11.9 Type 2 diabetes mellitus without complications; I10 Essential (primary) hypertension; J44.9 Chronic obstructive pulmonary disease, unspecified; F17.210 Nicotine dependence, cigarettes, uncomplicated; W18.30XA Fall on same level, unspecified, initial encounter
CPT/HCPCS: 36415; 70450; 71045; 72125; 80053; 83735; 83880; 84484; 85025; 85610; 85730; 93005

== ENCOUNTER 2023-12-08 08:31 | Inpatient (IN) | payer MEDICARE ==
[2023-12-08 09:01] LABS: #Basophils 0.05 10x3/uL (0.0-0.2); %Basophils 0.3 % (0.0-1.0); %Eosinophils 2.2 % (0.0-10.0); %Lymphocytes 9.4 % (21.0-51.0); %Monocytes 11.2 % (0.0-10.0); %Neutrophils 76.1 % (42.0-75.0); Hematocrit 42.3 % (36.0-47.0); Hemoglobin 13.6 g/dL (12.0-16.0); Mean Corpuscular HGB CONC 32.2 g/dL (32.0-36.0); Mean Corpuscular Hemoglobin 28.9 pg (27.0-31.0); Mean Corpuscular Volume 89.8 fL (78.0-98.0); Mean Platelet Volume 11.2 fL (7.4-10.4); Platelet Count 233 10x3/uL (130-400); RBC Distribution Width 13.7 % (11.5-14.5); Red Blood Cell (RBC) Count 4.71 mill/uL (4.20-5.40)
[2023-12-08 09:17] LABS: PTT 34.7 sec (22.9-36.1); Prothrombin Time 13.7 sec (12.0-14.7)
[2023-12-08 09:20] LABS: Troponin I 0.023 ng/mL (< 0.028)
[2023-12-08 09:21] LABS: ALT (SGPT) 8 U/L (8-55); AST (SGOT) 12 U/L (5-34); Albumin 3.1 g/dL (3.4-4.8); Alkaline Phosphatase 75 U/L (40-110); Anion Gap 11 mmol/L (10-20); BUN (Urea Nitrogen) 12 mg/dL (9.8-20.1); Bilirubin, Total 0.6 mg/dL (0.2-1.2); Calc. Creatinine Clearance 0 mL/min (70-130); Carbon Dioxide 29 mmol/L (23-31); Chloride 103 mmol/L (98-107); Estimated GFR 85; Globulin 2.2 g/dL (2.4-3.5); Glucose 147 mg/dL (83-110); Potassium 4.6 mmol/L (3.5-5.1); Protein, Total 5.3 g/dL (5.8-8.1); Sodium 138 mmol/L (136-145)
[2023-12-08] MEDS ORDERED: Aspirin Chewable 81 MG TAB ONE (09:52)
[2023-12-08] MEDS ORDERED: Iopamidol 370 76% 100 ML VIAL ONE (11:02)
[2023-12-08 16:36] VITALS: BMI 21.4
[2023-12-08] MEDS: Mometasone 200 MCG/Formoterol 5 MCG 120 PUFF INHALER INH SCH (18:16)
[2023-12-08] MEDS: FLU (Fluad Triv) TS24-25 (65UP)/MF59C/PF 45 MCG/0.5 ML Syringe IM ONE (18:18)
[2023-12-08] MEDS: Nicotine 21 MG PATCH TD SCH (18:19)
[2023-12-08] MEDS: Heparin 5,000 UNITS/ML VIAL SC SCH (21:41)
[2023-12-08] MEDS: Atorvastatin Calcium 40 MG TAB PO SCH (21:41)
[2023-12-09 03:34] LABS: #Basophils 0.03 10x3/uL (0.0-0.2); %Basophils 0.3 % (0.0-1.0); %Eosinophils 2.4 % (0.0-10.0); %Lymphocytes 10.6 % (21.0-51.0); %Monocytes 10.1 % (0.0-10.0); %Neutrophils 76.2 % (42.0-75.0); Hematocrit 39.4 % (36.0-47.0); Hemoglobin 12.7 g/dL (12.0-16.0); Mean Corpuscular HGB CONC 32.2 g/dL (32.0-36.0); Mean Corpuscular Hemoglobin 28.2 pg (27.0-31.0); Mean Corpuscular Volume 87.6 fL (78.0-98.0); Mean Platelet Volume 10.6 fL (7.4-10.4); Platelet Count 207 10x3/uL (130-400); RBC Distribution Width 13.8 % (11.5-14.5)
[2023-12-09 03:51] LABS: Hemoglobin A1c 5.9 % (4.0-6.0)
[2023-12-09 04:01] LABS: Anion Gap 11 mmol/L (10-20); BUN (Urea Nitrogen) 8 mg/dL (9.8-20.1); Calc. Creatinine Clearance 83 mL/min (70-130); Calcium 8.7 mg/dL (7.8-10.44); Carbon Dioxide 27 mmol/L (23-31); Cardiac Risk 2.4 (Less than 4.5); Chloride 103 mmol/L (98-107); Cholesterol 87 mg/dl (< 200 Desired); Estimated GFR 94; Glucose 115 mg/dL (83-110); HDL Cholesterol 37 mg/dL (>60 Neg Risk); LDL Cholesterol, Calculated 33 mg/dL; Potassium 3.4 mmol/L (3.5-5.1); Sodium 138 mmol/L (136-145); Triglycerides 83 mg/dL (Less than 150)
[2023-12-09] MEDS: Venlafaxine 75 MG TAB PO SCH (08:40)
[2023-12-09] MEDS: Aspirin 81 mg Enteric Coated Tablet PO SCH (08:40)
[2023-12-09] MEDS: Polyethylene Glycol 3350 17 GM Packet PO SCH (08:45)
[2023-12-09 10:58] VITALS: BMI 21.4
[2023-12-09] MEDS: Potassium Chloride 20 MEQ TAB PO SCH (10:59)
[2023-12-09] MEDS: Mineral Oil ENEMA PR SCH (10:59)
[2023-12-09] MEDS: Ipratropium/Albuterol 3 ML NEB NEB PRN (18:39)
[2023-12-09] MEDS: Acetaminophen 325 MG TAB PO PRN (21:20)
[2023-12-09] MEDS: Donepezil HCl 10 MG TAB PO SCH (21:20)
[2023-12-09] MEDS: Famotidine 20 MG TAB PO SCH (21:20)
[2023-12-09] MEDS: Metoprolol Tartrate 25 MG TAB PO SCH (21:20)
[2023-12-09] MEDS: Senokot S 8.6-50 MG TAB PO SCH (21:21)
[2023-12-09] MEDS: Doxycycline 100 MG CAP PO SCH (21:43)
[2023-12-09] MEDS: Cefepime 1 GM in Sodium Chloride 0.9% 100 ML IVPB SCH (21:49)
[2023-12-10 04:16] LABS: #Basophils 0.03 10x3/uL (0.0-0.2); %Basophils 0.2 % (0.0-1.0); %Eosinophils 1.2 % (0.0-10.0); %Lymphocytes 10.9 % (21.0-51.0); %Monocytes 13.5 % (0.0-10.0); %Neutrophils 73.5 % (42.0-75.0); Hematocrit 39.8 % (36.0-47.0); Hemoglobin 12.8 g/dL (12.0-16.0); Mean Corpuscular HGB CONC 32.2 g/dL (32.0-36.0); Mean Corpuscular Hemoglobin 28.3 pg (27.0-31.0); Mean Corpuscular Volume 88.1 fL (78.0-98.0); Mean Platelet Volume 11.1 fL (7.4-10.4); Platelet Count 209 10x3/uL (130-400); RBC Distribution Width 13.9 % (11.5-14.5); Red Blood Cell (RBC) Count 4.52 mill/uL (4.20-5.40)
[2023-12-10 04:44] LABS: Anion Gap 11 mmol/L (10-20); BUN (Urea Nitrogen) 11 mg/dL (9.8-20.1); Calc. Creatinine Clearance 77 mL/min (70-130); Calcium 8.9 mg/dL (7.8-10.44); Carbon Dioxide 27 mmol/L (23-31); Chloride 102 mmol/L (98-107); Estimated GFR 92; Glucose 180 mg/dL (83-110); Sodium 136 mmol/L (136-145)
[2023-12-10 06:18] LABS: Bacteria/HPF None Seen HPF (None Seen); Bilirubin Negative (Negative); Blood, Urine Negative (Negative); CAUTI Indications for Culture Fever or rigors; Clarity Clear (Clear); Glucose, Urine (Dipstick) Normal (Negative); Ketone, Urine Negative (Negative); Leukocyte 500 Leu/uL (Negative); Nitrite Negative (Negative); Protein, Urine (Dipstick) Negative (Neg-Trace); RBC/HPF 0-3 HPF (0-3); Specific Gravity, Urine 1.009 (1.002-1.036); Squamous Epithelial None Seen HPF (0-3); Urobilinogen Normal mg/dL (Less than 2); WBC/HPF Greater than 50 HPF (0-3); pH, Urine 7.5 (5.0-9.0)
[2023-12-10 06:20] LABS: Urine Culture Reflex Yes Yes
[2023-12-10] MEDS: Clopidogrel Bisulfate 75 MG TAB PO SCH (09:18)
[2023-12-10] MEDS: Cefepime 1 GM in Sodium Chloride 0.9% 100 ML IVPB SCH (09:19)
[2023-12-10] MEDS: Bupropion 150 MG SR.TAB PO SCH (09:19)
[2023-12-10] MEDS: Lisinopril 20 MG TAB PO SCH (09:19)
[2023-12-10] MEDS: Doxycycline 100 MG CAP PO SCH (09:19)
[2023-12-10] MEDS: Nicotine 7 MG PATCH TD SCH (10:12)
[2023-12-10] MEDS: Cefepime 2 GM in Sodium Chloride 0.9% 100 ML IVPB SCH (14:51)
[2023-12-11 03:58] LABS: #Basophils 0.03 10x3/uL (0.0-0.2); %Basophils 0.3 % (0.0-1.0); %Lymphocytes 7.6 % (21.0-51.0); %Monocytes 9.9 % (0.0-10.0); %Neutrophils 79.5 % (42.0-75.0); Hematocrit 37.5 % (36.0-47.0); Hemoglobin 11.9 g/dL (12.0-16.0); Mean Corpuscular HGB CONC 31.7 g/dL (32.0-36.0); Mean Corpuscular Hemoglobin 28.3 pg (27.0-31.0); Mean Corpuscular Volume 89.3 fL (78.0-98.0); Mean Platelet Volume 11.1 fL (7.4-10.4); Platelet Count 215 10x3/uL (130-400); RBC Distribution Width 13.7 % (11.5-14.5)
[2023-12-11 04:33] LABS: Anion Gap 11 mmol/L (10-20); BUN (Urea Nitrogen) 12 mg/dL (9.8-20.1); Calc. Creatinine Clearance 74 mL/min (70-130); Calcium 8.8 mg/dL (7.8-10.44); Carbon Dioxide 23 mmol/L (23-31); Chloride 101 mmol/L (98-107); Estimated GFR 90; Glucose 216 mg/dL (83-110); Potassium 4.1 mmol/L (3.5-5.1); Sodium 131 mmol/L (136-145)
[2023-12-12 06:47] LABS: #Basophils 0.03 10x3/uL (0.0-0.2); %Basophils 0.3 % (0.0-1.0); %Eosinophils 2.6 % (0.0-10.0); %Lymphocytes 11.7 % (21.0-51.0); %Monocytes 10.3 % (0.0-10.0); %Neutrophils 74.5 % (42.0-75.0); Hematocrit 39.1 % (36.0-47.0); Hemoglobin 12.3 g/dL (12.0-16.0); Mean Corpuscular HGB CONC 31.5 g/dL (32.0-36.0); Mean Corpuscular Volume 89.1 fL (78.0-98.0); Mean Platelet Volume 11.2 fL (7.4-10.4); Platelet Count 205 10x3/uL (130-400); RBC Distribution Width 13.7 % (11.5-14.5); Red Blood Cell (RBC) Count 4.39 mill/uL (4.20-5.40)
[2023-12-12 07:18] LABS: Anion Gap 12 mmol/L (10-20); BUN (Urea Nitrogen) 9 mg/dL (9.8-20.1); Calc. Creatinine Clearance 83 mL/min (70-130); Carbon Dioxide 25 mmol/L (23-31); Chloride 102 mmol/L (98-107); Estimated GFR 94; Glucose 126 mg/dL (83-110); Potassium 4.2 mmol/L (3.5-5.1); Sodium 135 mmol/L (136-145)
[2023-12-12 16:42] VITALS: BP 129/73; TEMP 99.1
== END 2023-12-12 17:52 | DRG 69 ==
LOC: ERS 08:31 → 2SE 10:18 → OBSVTOIN 12-10 11:01
PROVIDERS: ADMIT Hospitalist; ATTEND Family Medicine
DX: G45.9 Transient cerebral ischemic attack, unspecified (principal); N39.0 Urinary tract infection, site not specified; I69.352 Hemiplegia and hemiparesis following cerebral infarction affecting left dominant side; G81.91 Hemiplegia, unspecified affecting right dominant side; I65.22 Occlusion and stenosis of left carotid artery; I10 Essential (primary) hypertension; J44.9 Chronic obstructive pulmonary disease, unspecified; F17.210 Nicotine dependence, cigarettes, uncomplicated; R47.1 Dysarthria and anarthria; F32.A Depression, unspecified; F01.50 Vascular dementia, unspecified severity, without behavioral disturbance, psychotic disturbance, mood disturbance, and anxiety; K59.00 Constipation, unspecified; E87.6 Hypokalemia; Z90.710 Acquired absence of both cervix and uterus
CPT/HCPCS: 0042T; 36415; 36416; 51798; 70450; 70496; 70498; 70551; 71045; 74176; 80048; 80053; 80061; 81001; 83036; 84443; 84484; 85025; 85610; 85730; 87040; 87086; 93005; 93306; 94640; 94664; 96365; 96372; 96374; 96376; G0378; J0692; J1644; J7620; Q9967